=== PATIENT | female | born 1930 | race Caucasian/White ===

== ENCOUNTER 2016-12-27 14:08 | Inpatient (IN) | payer MEDICARE, OTHER ==
[~2016-12-27 14:08] MED LIST: ADVAIR 500-501 EACH INH; ALBUTEROL2.5 MG/3 M INH; AMBIEN5 MG PO; BENADRYL 25MG C25 MG PO; BETAPACE80 MG PO; BIOTIN5 MG PO; CARDIZEM30 MG PO; COUMADIN4 MG PO; COUMADIN5 MG PO; K-DUR TAB 10 M10 MEQ PO; LASIX40 MG PO; PREDFORTE OP SUS5 ML OP; PROZAC20 MG PO; RESTASIS1 EACH OU; SINGULAIR10 MG PO; SYNTHROID75 MCG PO; TEARS NATURALE15 ML OU; TYLENOL 500 MG500 MG PO; TYLENOL PM EX-1 EACH PO; VISION VITAMIN1 EAC1 PO; VISTARIL25 MG PO; VITAMIN D22000 UNIT PO; ZESTRIL20 MG PO; ZOCOR20 MG PO
[2016-12-27 16:35] LABS: HEMOGLOBIN 13.7 gm/dl (12.3-15.3); RED BLOOD COUNT 4.48 M/UL (4.00-5.10); WHITE BLOOD COUNT 6.9 K/UL (4.5-11.0)
[2016-12-28] MEDS ORDERED: SOTALOL80 MG PO (01:58)
[2016-12-28] MEDS ORDERED: CARDIZEM30 MG PO (01:58)
[2016-12-28] MEDS ORDERED: LASIX20 MG PO (01:59)
[2016-12-28] MEDS ORDERED: KLOR-CON M1010 MEQ PO (02:00)
[2016-12-28] MEDS ORDERED: ELIQUIS 5 MG TAB5 MG PO (02:00)
[2016-12-28] MEDS ORDERED: SYNTHROID75 MCG PO (02:00)
[2016-12-28] MEDS ORDERED: ALPRAZOLAM0.5 MG PO (02:01)
[2016-12-28] MEDS ORDERED: CATAPRES 0.1MG0.1 MG PO (02:01)
[2016-12-28] MEDS ORDERED: MYRBETRIQ50 MG PO (02:02)
[2016-12-28] MEDS ORDERED: ADVAIR 500-501 EACH INH (02:03)
[2016-12-28] MEDS ORDERED: PROVENTIL HFA 61 INH INH (02:03)
[2016-12-29 04:28] LABS: HEMOGLOBIN 14.3 gm/dl (12.3-15.3); RED BLOOD COUNT 4.65 M/UL (4.00-5.10)
[2016-12-29 04:36] LABS: WHITE BLOOD COUNT 4.6 K/UL (4.5-11.0)
[2016-12-30 06:47] LABS: RED BLOOD COUNT 4.63 M/UL (4.00-5.10)
[2016-12-30 06:51] LABS: WHITE BLOOD COUNT 14.4 K/UL (4.5-11.0)
[2016-12-30] MEDS ORDERED: CIPRO500 MG PO (17:41)
== END 2016-12-30 18:40 | disposition home or self-care (01) | DRG 309 ==
LOC: ER1 14:08 → ZEROF 20:35 → PROG CARE 20:35
PROVIDERS: Internal Medicine; Physician Assistant; ADMIT Hospitalist
DX: I48.0 Paroxysmal atrial fibrillation (principal); J44.1 Chronic obstructive pulmonary disease with (acute) exacerbation; J45.901 Unspecified asthma with (acute) exacerbation; E87.1 Hypo-osmolality and hyponatremia; N30.01 Acute cystitis with hematuria; I48.92 Unspecified atrial flutter; I10 Essential (primary) hypertension; E86.0 Dehydration; Z66 Do not resuscitate; B96.1 Klebsiella pneumoniae [K. pneumoniae] as the cause of diseases classified elsewhere; R53.1 Weakness; R53.81 Other malaise; E03.9 Hypothyroidism, unspecified; L30.9 Dermatitis, unspecified; Z88.2 Allergy status to sulfonamides; Z88.8 Allergy status to other drugs, medicaments and biological substances; Z88.3 Allergy status to other anti-infective agents; Z88.0 Allergy status to penicillin; Z88.7 Allergy status to serum and vaccine; Z88.5 Allergy status to narcotic agent; Z91.012 Allergy to eggs; Z99.81 Dependence on supplemental oxygen; Z79.01 Long term (current) use of anticoagulants; Z79.51 Long term (current) use of inhaled steroids; Z79.899 Other long term (current) drug therapy; Z28.21 Immunization not carried out because of patient refusal; Z82.49 Family history of ischemic heart disease and other diseases of the circulatory system
CPT/HCPCS: 36415; 71010; 80048; 80053; 81001; 82550; 82553; 83690; 83874; 84484; 85025; 85027; 87040; 87077; 87086; 87186; 93005; 94640; 94664; 96365; 96375; 97116; 99285; J0456; J0696; J1956; J2405; J2920; J7030; J7040; J7050

== ENCOUNTER 2017-01-13 11:17 | Emergency (ER) | payer MEDICARE, OTHER ==
[~2017-01-13 11:17] MED LIST changes: +ALPRAZOLAM0.5 MG PO; +CATAPRES 0.1MG0.1 MG PO; +CIPRO500 MG PO; +ELIQUIS 5 MG TAB5 MG PO; +KLOR-CON M1010 MEQ PO; +LASIX20 MG PO; +MYRBETRIQ50 MG PO; +PROVENTIL HFA 61 INH INH; +SOTALOL80 MG PO
[2017-01-13 14:00] LABS: HEMOGLOBIN 12.3 gm/dl (12.3-15.3); RED BLOOD COUNT 4.01 M/UL (4.00-5.10); WHITE BLOOD COUNT 11.6 K/UL (4.5-11.0)
[2017-01-13 14:19] LABS: BUN/CREATININE RATIO 16 (0-10)
== END 2017-01-13 15:53 | disposition home or self-care (01) ==
LOC: ER1 11:17
PROVIDERS: Emergency Medicine
DX: T43.591A Poisoning by other antipsychotics and neuroleptics, accidental (unintentional), initial encounter (principal); M25.562 Pain in left knee
CPT/HCPCS: 36415; 73564; 80048; 85025; 99284